=== PATIENT | female | born 1960 | race Caucasian/White ===

== ENCOUNTER 2018-03-05 08:29 | Day surgery (SDC) | payer OTHER ==
[~2018-03-05 08:29] MED LIST: ANCEF/STERILE WATER 2 GM/20 ML 2 GM/20 ML SYRINGE IV NR; NACL 0.9% 1000 ML 1,000 ML IV SCH
[2018-03-05 09:35] LABS: Basophils % (Auto) 1.1 % (0.0-1.8); Eosinophils # (Auto) 0.1 K/mm3 (0.0-0.4); Eosinophils % (Auto) 2.4 % (0.0-4.3); Hematocrit 40.6 % (30.3-42.9); Hemoglobin 13.7 gm/dl (10.1-14.3); Lymphocytes # (Auto) 1.6 K/mm3 (1.2-5.4); Lymphocytes % (Auto) 37.6 % (13.4-35.0); Mean Corpuscular HGB Conc 34 % (30-34); Mean Corpuscular Hemoglobin 30 pg (28-32); Mean Corpuscular Volume 90 fl (79-97); Monocytes # (Auto) 0.4 K/mm3 (0.0-0.8); Monocytes % (Auto) 9.2 % (0.0-7.3); Platelet Count 148 K/mm3 (140-440)
[2018-03-05 09:45] LABS: INR 0.87 (0.87-1.13)
[2018-03-05 09:46] LABS: Partial Thromboplastin Time 28.9 Sec. (24.2-36.6)
[2018-03-05 09:49] LABS: BUN/Creatinine Ratio 20; Blood Urea Nitrogen 16 mg/dL (7-17); Calcium 9.2 mg/dL (8.4-10.2); Hemolysis Index 7
[2018-03-05] MEDS ORDERED: HEPARIN/NS 5000 UNIT/500ML(CATH LAB) 1,000 ML IR ONE (11:26)
[2018-03-05] MEDS ORDERED: ANCEF/STERILE WATER 2 GM/20 ML 2 GM/20 ML SYRINGE IV ONE (11:34)
[2018-03-05] MEDS: VERSED ONE ×2 (11:49→12:10)
[2018-03-05] MEDS: SUBLIMAZE ONE ×2 (11:49→12:12)
[2018-03-05] MEDS: XYLOCAINE 2% INFILTRATI ONE ×2 (11:52→11:55)
[2018-03-05] MEDS ORDERED: TORADOL ONE (12:04)
--- NOTE | 2018-03-05 12:32 | Short Stay Summary ---
Short Stay Documentation Date of service: 03/05/18 - History Principal diagnosis: venous hypertension/compression of vein H&P: obtained from office - Allergies and Medications Current Medications: Allergies No Known Allergies Allergy (Unverified 03/05/18 08:30) Home Medications Medication Instructions Recorded Confirmed Last Taken Type RX: Levothyroxine [Synthroid] 75 mcg PO DAILY 03/05/18 03/05/18 03/05/18 History 75mcg RX: Liothyronine Sodium [Cytomel] 5 mcg PO DAILY 03/05/18 03/05/18 03/05/18 History 5mcg Active Medications Cefazolin Sodium (Ancef/Sterile Water 2 Gm/20 Ml) 2 gm in 20 mls @ 80 mls/hr IV PREOP NR; Protocol Stop: 03/05/18 23:59 Last Admin: 03/05/18 11:46 Dose: 20 mls Sodium Chloride (Nacl 0.9% 1000 Ml) 1,000 mls @ 42 mls/hr IV DIRECT ARNIE Last Admin: 03/05/18 10:14 Dose: 42 mls/hr - Brief post op/procedure progress note Date of procedure: 03/05/18 Pre-op diagnosis: venous hypertension/compression of vein Post-op diagnosis: same Procedure: BLE venogram and stent placement Anesthesia: local Surgeon: ASHLIE JENSEN Estimated blood loss: minimal Pathology: none Condition: stable - Disposition Condition at discharge: Good Disposition: DC-01 TO HOME OR SELFCARE Short Stay Discharge Plan Activity: advance as tolerated Weight Bearing Status: Weight Bear as Tolerated Diet: regular Wound: keep clean and dry, per your surgeon's advice Follow up with: YULIA MITCHELL MD [Primary Care Provider] - 7 Days
--- NOTE | 2018-03-05 12:37 | Operative Report ---
Operative Report Operative Report: Exam: Bilateral lower extremity venogram, venoplasty with stent placement Clinical indication: Patient with extrinsic compression of a vein and bilateral lower extremity venous hypertension Date: 03/05/2018 Procedure: Following an explanation of the risks, benefits and alternatives; written informed consent was obtained. The patient was brought to the injury graphic suite and placed in supine position on the examination table. Initial ultrasound evaluation of her legs demonstrated patent femoral veins bilaterally. Her bilateral legs were prepped and draped in usual sterile fashion. 1% lidocaine was used for anesthesia. Under ultrasound guidance, the right femoral vein was cannulated proximally using a 7 cm 18-gauge needle. A 0.035 guidewire was advanced centrally. The needle was removed and a 5 [place] sheath placed. Access to the left proximal femoral vein was obtained in a similar fashion and an additional 5 [place] sheath placed. Venography was performed to the sheaths bilaterally. This demonstrates significant compression of the mid and distal right common iliac vein estimated at 60-70%. Additionally, there is significant compression at the origin of the left common iliac vein of approximately 70%. Both sheaths were upsized over the guidewires to 10 [place] sheaths. Following venography for anatomic localization, an 18 mm x 90 mm Wallstent was advanced through the right sheath to position the distal aspect of the stent just above the bifurcation of the proximal aspect within the right external iliac vein. A second 18 x 90 mm Wallstent was then advanced through the left sheath to position the distal aspect of the stent just above the bifurcation and the proximal aspect within the left external iliac vein. The stents were then deployed in kissing fashion. The stents were seated using 16 mm x 40 mm [place] balloons insufflated to 4 michael of multiple locations. Post stent placement imaging demonstrated brisk flow throughout the bilateral external, common iliac veins and IVC. A 5 [place] C2 glide cobra catheter was then advanced over the guidewire and the guidewire exchanged for a Glidewire. Together the guidewire and C2 catheter were advanced to the left renal vein. The catheter and guidewire were advanced into the left lower pole renal vein and contrast injected. There appears to be no evidence of nutcracker syndrome. The origin of the left gonadal vein was identified. The guidewire and catheter were then used to selectively cannulate the origin of the left gonadal vein. It appears to be 4 mm in diameter. The guidewire and catheter were advanced more distally. Contrast was injected which demonstrated a tapering and narrowing of the distal left gonadal vein. Proximal withdrawal of the catheter and additional contrast injections demonstrated no significantly enlarged duplicated gonadal veins. At this point, the catheters, guidewires and she's were removed and hemostasis achieved using a new compression. Sterile compression dressings were then applied. The patient tolerated the procedure well. There were no immediate post procedure complications. Conscious sedation was performed under the guidance of radiologic nursing. Continuous cardiopulmonary monitoring was utilized. Impression: 1) 60-70% stenosis in the mid and distal right common iliac vein and 70% stenosis within the proximal left common iliac vein secondary to extrinsic compression of and artery. 2) Venoplasty and stent placement as described with residual less than 10% stenosis. 3) Catheter placement within the left gonadal vein with venography which demonstrates no significantly dilated left gonadal vein.
[2018-03-05] MEDS ORDERED: PERCOCET 5/325 ONE (12:54)
[2018-03-05] MEDS ORDERED: PERCOCET 5/325 PO ONE (13:15)
[2018-03-05 13:54] VITALS: BP 113/70
== END 2018-03-05 14:00 | disposition home or self-care (01) ==
LOC: CATHLABREC 08:29
PROVIDERS: ATTEND Radiology Diagnostic Radiology
DX: I87.1 Compression of vein (principal); I87.393 Chronic venous hypertension (idiopathic) with other complications of bilateral lower extremity; E03.9 Hypothyroidism, unspecified; Z79.899 Other long term (current) drug therapy; Z79.01 Long term (current) use of anticoagulants
CPT/HCPCS: 36415; 37238; 37239; 75822; 76937; 80048; 85025; 85610; 85730; 99156; 99157; C1725; C1751; C1769; C1876; C1894; J0690; J1644; J1885; J2250; J3010; J7030; Q9967